=== PATIENT | female | born 1975 | race Caucasian/White ===

== ENCOUNTER → 2017-12-23 13:35 | Outpatient (CLI) | payer MEDICAID, SELFPAY ==
--- NOTE | 2017-12-23 | NVE_ITS ---
Venous Exam Indications: 729.5 Pain in limb. Patient states on December 17 she had a burning pain that originated in the right anterior wrist that moved up the outside of the arm to the shoulder. She denies any known trauma. No recent IV sticks. IMPRESSIONS No evidence of deep or superficial vein thrombosis involving the veins of the right upper extremity History: Right upper extremity pain. Right upper extremity venous duplex. Doppler flow study including spectral analysis, color and pena scale imaging. Location: Vascular laboratory. Patient status: Outpatient. Tables: Venous flow and imaging: + + + Location Flow properties + + + Right internal jugular Normal phasicity; spontaneous; compressible + + + Right subclavian Normal phasicity; spontaneous; normal augmentation; compressible + + + Right axillary Normal phasicity; spontaneous; normal augmentation; compressible + + + Right brachial Normal phasicity; spontaneous; normal augmentation; compressible + + + Right cephalic Normal phasicity; spontaneous; normal augmentation; compressible + + + Right basilic Normal phasicity; spontaneous; normal augmentation; compressible + + + Right radial Compressible + + + Right ulnar Compressible + + + (Report amended ) Electronically signed by: Pankaj Dunlap [id number]
== END ==
PROVIDERS: PCP Family Medicine; Visit Provider Nurse Practitioner
DX: M79.601 Pain in right arm (principal); S40.021A Contusion of right upper arm, initial encounter
CPT/HCPCS: 93971

== ENCOUNTER 2021-02-22 13:41 | Emergency (ER) | payer MEDICAID, SELFPAY ==
[2021-02-22 15:45] VITALS: BP 141/90; PULSE 90; RESP 20; TEMP 36.7; O2SAT 100; BMI 24.9
--- NOTE | 2021-02-22 16:18 | HMH.EDUTC ---
[facility] [place] Clinical Impression: Burning with urination Disposition: Home, Self-Care Condition on Discharge: Good Instructions: DI for Urinary Tract Infection (UTI), DI for Vaginal Yeast Infection Additional Instructions: *Increase fluids. Water not Soda or Tea *Start antibiotic immediately and be sure to take as ordered for the FULL length of time although you should start to see improvement over the next 48 hours Be SURE to follow up anytime for new or worsening symptoms with your family doctor. AND in 48 hours for urine culture results with your family doctor, if you do not have a doctor then you may call back to the [facility] for urine culture results and further treatment. We do recommend that you choose and establish care with a Primary Care Physician. AND follow up with them in 10-14 days to repeat UA to ensure infection is resolved and blood no longer present *Be sure to let your PCP know that we sent urine cultures from the [facility] so they can follow up to ensure that you area the on the correct antibiotic Call your doctor office and make appointment for 48 hours (2 days from today) to follow up and get the results of your urine culture and further treatment Follow up with your Family Doctor or OBGYN if symptoms continued Prescriptions: Fluconazole [Diflucan 150mg tab] 150 mg PO DIRECTED #2 tab Transmission Status: Pending to [facility] Nitrofurantoin Monohyd/M-Cryst [Macrobid 100 mg Capsule] 100 mg PO BID 5 Days #10 cap Transmission Status: Pending to [facility] Referrals: Joseph Farias [Primary Care Provider] - As needed Medical Decision Making - Moises Inquiry Pt receiving controlled substance: No Moises was queried for this patient: No Vital Signs: 02/22/21 15:45 Temperature 98.1 F Temperature Source Oral Pulse Rate [Right Brachial] 90 Respiratory Rate 20 Blood Pressure [Right Arm] 141/90 H Blood Pressure Mean [Right Arm] 107 Blood Pressure Source [Right Arm] Automatic Cuff Blood Pressure Position [Right Arm] Sitting 02 Sat by Pulse Oximetry 100 Oxygen Delivery Method Room Air - Lab Data Lab results reviewed: Yes: I reviewed the patient's lab results. Medical Decision Narrative: Discussed with patient about transfer to the ED and patient declined due to pressure in her pelvic area patient states that she just feels pressure like she has to urinate frequently and denies fever or abdominal pain [facility] [place] - General Stated complaint: possible uti/yeast infection Time Seen by Provider: 02/22/21 16:18 Mode of Arrival: Ambulatory Source of Information: Patient Limitations: No Limitations Description of Symptoms (Recalled from Triage Doc. by RN): PATIENT C/O URINARY FREQUENCY, PRESSURE/PAIN TO LEFT PELVIC AREA THAT RADIATES TO BACK, AND IRRITATION TO LOLITA AREA HEENT Symptoms (Recalled from RN notes): No Resp Symptoms (Recalled from RN notes): No Skin Symptoms (Recalled from RN notes): No MS Symptoms (Recalled from RN notes): No Functional Status (Recalled from RN notes): WNL - History of Present Illness Provider Complaint: Patient states that she was recently seen by her OBGYN and treated for yeast infection and given flagyl cream State that it got better but now she is having the white discharge again with burning to vaginal area States that she thinks she may have a UTI or bladder infection States that she has been having achy like feeling in her lower back that comes around her side and pressure like she has to go States that she took azo and it helped a little - Related Data Previous Rx's Medication Instructions Recorded acyclovir 800 mg tablet 800 mg PO 5XD 7 Days #35 tab 04/11/18 Fluconazole [Diflucan 150mg tab] 150 mg PO DIRECTED #2 tab 02/22/21 Nitrofurantoin Monohyd/M-Cryst 100 mg PO BID 5 Days #10 cap 02/22/21 [Macrobid 100 mg Capsule] Allergies Allergy/AdvReac Type Severity Reaction Status Date / Time Penicillins [PENICILLINS] Allergy Unknown Ve
[2021-02-22 16:24] LABS: Apearance,Urine Clear (Clear); Color,Urine Yellow (Yellow); PH,Urine 5.5 (5.0-8.5); Protein,Urine Negative (Negative)
[2021-02-22 16:25] LABS: Bilirubin,Urine Negative (Negative); Blood, Urine Negative (Negative); Glucose,Urine (UA) Negative (Negative); Ketones,Urine Negative (Negative); UTC Leukocyte Esterase,Urine Negative (Negative); UTC Nitrate,Urine Negative (Negative); Urobilinogen,Urine 0.2 EU/dl (0.2)
[2021-02-22 16:40] VITALS: BP 141/90; PULSE 90; RESP 20; TEMP 36.7; O2SAT 100
== END 2021-02-22 16:43 | disposition home or self-care (01) ==
PROVIDERS: Emergency Provider Nurse Practitioner; PCP Family Medicine
DX: N39.0 Urinary tract infection, site not specified (principal); Z88.0 Allergy status to penicillin; Z88.2 Allergy status to sulfonamides; Z88.5 Allergy status to narcotic agent; Z88.8 Allergy status to other drugs, medicaments and biological substances
CPT/HCPCS: 81003; 99202; G0463

== ENCOUNTER 2021-12-18 17:20 | Emergency (ER) | payer MEDICAID, SELFPAY ==
[2021-12-18 18:13] VITALS: BP 123/79; PULSE 96; RESP 18; TEMP 36.8; O2SAT 98; BMI 27.2
--- NOTE | 2021-12-18 18:19 | XR_ITS ---
PROCEDURE INFORMATION: Exam: XR Left Tibia and Fibula Exam date and time: 12/18/2021 6:24 PM Age: 46 years old Clinical indication: Pain; Lower leg; Left; Additional info: Pain, swelling TECHNIQUE: Imaging protocol: Radiologic exam of the Left tibia and fibula. Views: 2 views. COMPARISON: No relevant prior studies available. FINDINGS: Bones/joints: Normal. Soft tissues: Normal. IMPRESSION: No acute findings.
--- NOTE | 2021-12-18 18:20 | HMH.EDGENADL ---
Discharge Plan Disposition Patient Disposition: Home, Self-Care Condition: Good Chief Complaint: Extremity Injury, Lower Prescriptions Prescriptions: No Action acyclovir 800 mg tablet 800 mg PO 5XD 7 Days Qty: 35 0RF Rx Instructions: while awake fluconazole 150 MG tablet 150 mg PO DIRECTED Qty: 2 0RF Rx Instructions: take one tablet now and may repeat in 72 hours nitrofurantoin monohyd/m-cryst 100 MG capsule 100 mg PO BID 5 Days Qty: 10 0RF Referrals Follow up/Referrals: Chencho Farias MD [Primary Care Provider] - See instructions Activity Restrictions/Add. Instructions Additional Instructions/Restrictions: Ibuprofen for pain. Elevate leg to reduce swelling. Follow-up with your primary care provider for further evaluation and care. Call tomorrow to make appointment. Clinical Impressions Clinical Impression: Left leg pain Instructions Patient Instructions: DI for Leg Pain Discharge ED Provider: Tone Archuleta General Adult HPI General Chief complaint: Extremity Injury, Lower Stated complaint: LEFT LEG PAIN Time Seen by Provider: 12/18/21 18:10 Mode of Arrival: Ambulatory Source of Information: Patient Limitations: No Limitations Description of Symptoms (Recalled from ER Triage Doc. by RN): pt to ed c/o left leg pain and swelling. pt states her leg has been painful x2 weeks. pt denies any injuries. pt states she has intermittent tingling to the extremity. LLE pulses strong on palpation. History of Present Illness HPI narrative: States that for more than a month she has had some pain and swelling in her left leg. She says it is most painful around the midshaft of the lower leg but it radiates both upwards and downwards. She feels like there is some swelling in that area as well. Associated with a tingling sensation. No fever, no redness. No trauma or injury or unusual activity. States she tried to get into her primary care doctor and cannot get an appointment for several weeks. She is concerned about having a clot. She does not have any prior history of blood clots. She says she has been worked up 1 time previously. She says that she had tingling and swelling of her legs and she had a CAT scan of her legs that showed very narrow veins. Related Data Previous Rx's Medication Instructions Recorded acyclovir 800 mg tablet 800 mg PO 5XD shingles 7 days #35 02/25/19 tabs fluconazole 150 mg tablet 150 mg PO DIRECTED #2 tabs 02/22/21 nitrofurantoin 100 mg PO BID 5 days #10 caps 02/22/21 monohydrate/macrocrystals 100 mg capsule Allergies Allergy/AdvReac Type Severity Reaction Status Date / Time Penicillins [PENICILLINS] Allergy Unknown Verified 02/22/21 16:18 Sulfa (Sulfonamide Allergy Unknown Verified 02/22/21 16:18 Antibiotics) [SULFA (SULFONAMIDE ANTIBIOTICS)] acetaminophen [From [place]] Allergy Verified 02/22/21 16:16 adhesive tape Allergy Verified 02/22/21 16:18 ciprofloxacin Allergy Verified 02/22/21 16:16 clindamycin Allergy Verified 02/22/21 16:16 doxycycline Allergy Verified 02/22/21 16:16 hydrocodone [From [place]] Allergy Verified 02/22/21 16:16 IV CONTRAS Allergy Uncoded 02/22/21 16:18 PFSH PFSH Social History Smoking Status: Never smoker alcohol intake: never current occupational status: employed Travel in the last 8 weeks: None household members: family housing: house ROS Obtained: Yes Systems reviewed as appropriate & no additional complaints except as documented Constitutional Constitutional: Denies fever(s) Cardiovascular Cardiovascular: Denies chest pain Respiratory Respiratory: Denies shortness of breath Musculoskeletal Musculoskeletal: Reports as per HPI and Reports tingling Neurologic Neurologic: Reports tingling Physical Exam General General appearance: alert and in no apparent distress Chest Chest inspection: Present normal inspection and symmetric chest wall
--- NOTE | 2021-12-18 18:40 | PC.NURSE ---
rounded on pt to see if they had any needs. pt stated no needs at this time.
[2021-12-18 18:42] LABS: Basophils # 0.1 K/mm3 (0-0.2); Basophils % 0.9 % (0.1-2.0); Eosinophils # 0.2 K/mm3 (0.0-0.4); Eosinophils % 2.1 % (0.1-12.0); Hematocrit 43.7 % (37.0-47.0); Hemoglobin 14.5 g/dL (12.2-16.2); Lymphocytes % 34.2 % (10-50); Mean Corpuscular HGB Conc 33.2 g/dL (31.8-35.4); Mean Corpuscular Hemoglobin 30.2 pg (27.0-31.2); Monocytes # 0.5 K/mm3 (0.1-1.0); Monocytes % 5.2 % (1.7-9.3); Neutrophils % 57.6 % (37.0-80.0); Platelet Count 346 K/mm3 (142-424); Red Cell Distribution Width 13.1 % (11.5-17.5); White Blood Count 8.7 K/mm3 (4.8-10.8)
[2021-12-18 19:18] LABS: Anion Gap 17.9 mEq/L (5-15); Blood Urea Nitrogen 15 mg/dl (7-17); Calcium 9.7 mg/dl (8.4-10.2); Carbon Dioxide 24 mmol/L (22.0-30.0); Chloride 100 mmol/L (98-107); Creatinine Clearance Estimated 109 mL/min (50-200); Estimated Glomerular Filt Rate 77 ml/min (>60); GFR (African American) 93 ML/MIN (>60); Glucose 98 mg/dl (74-100); Potassium 3.9 mmoL/L (3.5-5.1); Sodium 138 mmol/L (136-145)
[2021-12-18 19:22] LABS: D-Dimer 0.47 ug/mL (0.0-0.5)
[2021-12-18 19:50] VITALS: BP 128/71; PULSE 91; RESP 18; TEMP 36.8; O2SAT 98
== END 2021-12-18 19:51 | disposition home or self-care (01) ==
PROVIDERS: Emergency Provider Emergency Medicine; PCP Family Medicine
DX: M79.605 Pain in left leg (principal)
CPT/HCPCS: 73590; 80048; 85025; 85378; 99283

== ENCOUNTER 2022-08-17 18:54 | Emergency (ER) | payer MEDICAID, SELFPAY ==
--- NOTE | 2022-08-17 19:19 | PC.NURSE ---
trauma alert called
--- NOTE | 2022-08-17 19:25 | PC.NURSE ---
trauma alert cancelle
--- NOTE | 2022-08-17 19:29 | PC.NURSE ---
FAST exam negative per physician.
--- NOTE | 2022-08-17 19:40 | PC.NURSE ---
report called to [facility] ER. spoke with Gee GALE
[2022-08-17 19:42] VITALS: BP 135/88; PULSE 80; RESP 16; TEMP 36.7; O2SAT 98; BMI 24.3
--- NOTE | 2022-08-17 20:30 | PC.NURSE ---
I WAS AT BS ASSISTING DR. CHAN CLEAN OUT PT EYE OR ANYTHING HE NEEDED, SON AT BS
--- NOTE | 2022-08-17 20:39 | HMH.EDEYEP ---
Discharge Plan Disposition Patient Disposition: Home, Self-Care Prescriptions Prescriptions: No Action acyclovir 800 mg tablet 800 mg PO 5XD 7 Days Qty: 35 0RF Rx Instructions: while awake fluconazole 150 MG tablet 150 mg PO DIRECTED Qty: 2 0RF Rx Instructions: take one tablet now and may repeat in 72 hours nitrofurantoin monohyd/m-cryst 100 MG capsule 100 mg PO BID 5 Days Qty: 10 0RF Referrals Follow up/Referrals: Chencho Farias MD [Primary Care Provider] - See instructions Clinical Impressions Clinical Impression: Eye foreign body Instructions Patient Instructions: DI for Foreign Body in the Eye Discharge ED Provider: Helene (ED)Rob Eye Problem HPI General Chief complaint: Eye Problems Stated complaint: LT eye pain , poss something in it Time Seen by Provider: 08/17/22 20:05 Mode of Arrival: Family Vehicle Source of Information: Patient and Medical Record Limitations: No Limitations Description of Symptoms (Recalled from ER Triage Doc. by RN): 46 YO FEMALE PRESENTS WITH LEFT EYE FOREIGN BODY. ACCORDING TO PT, SHE WAS OUTSIDE LAST NIGHT AND FELT SOMETHING 'GO IN' AND NOW 'HAS A BLACK SPECK' AND FEELS LIKE HER VISION IS ALTERED. VISUAL ACUITY REVEALS OS: 20/40, OD 20/20, OU 20/15. History of Present Illness HPI Narrative: small fb lt eye last pm with fb sensation - no contacts lens use chief complaint: foreign body Onset (ago): hour(s) Duration: intermittent Location: left eye Place: home Severity: moderate Treatments Prior to Arrival: irrigated eye and OTC eye drops Related Data Previous Rx's Medication Instructions Recorded acyclovir 800 mg tablet 800 mg PO 5XD shingles 7 days #35 04/11/18 tabs fluconazole 150 mg tablet 150 mg PO DIRECTED #2 tabs 02/22/21 nitrofurantoin 100 mg PO BID 5 days #10 caps 02/22/21 monohydrate/macrocrystals 100 mg capsule Allergies Allergy/AdvReac Type Severity Reaction Status Date / Time Penicillins [PENICILLINS] Allergy Unknown Verified 02/22/21 16:18 Sulfa (Sulfonamide Allergy Unknown Verified 02/22/21 16:18 Antibiotics) [SULFA (SULFONAMIDE ANTIBIOTICS)] acetaminophen [From [place]] Allergy Verified 02/22/21 16:16 adhesive tape Allergy Verified 02/22/21 16:18 ciprofloxacin Allergy Verified 02/22/21 16:16 clindamycin Allergy Verified 02/22/21 16:16 doxycycline Allergy Verified 02/22/21 16:16 hydrocodone [From [place]] Allergy Verified 02/22/21 16:16 IV CONTRAS Allergy Uncoded 02/22/21 16:18 [facility] Disclaimer: The information contained in this section may have been updated after the patient was seen, as this information can be updated by other users. Social History Smoking Status: Never smoker alcohol intake: never current occupational status: employed Travel in the last 8 weeks: None household members: family housing: house ROS Obtained: Yes All systems reviewed & no additional complaints except as documented Physical Exam General General appearance: alert Head Head exam: normocephalic Eye Eye exam: Present PERRL, EOMI and other (everted lid was neg and neg fluro stain) ENT ENT exam: Present mucous membranes moist Neck Neck exam: Present trachea midline Respiratory Respiratory exam: Absent respiratory distress Cardiovascular Cardiovascular exam: Present regular rate Extremities Exam Extremities exam: Present full ROM Neurological Exam Neurological exam: Present alert, oriented X3 and CN II-XII intact Skin Skin exam: Absent rash Medical Decision Making Medical Records Medical records reviewed: Yes I reviewed the patient's medical records. Moises Inquiry Pt receiving controlled substance: No Vital Signs: 08/17/22 19:42 Temperature 98.0 F Temperature Source Oral Pulse Rate [Left] 80 Respiratory Rate 16 Blood Pressure [Right Arm] 135/88 Blood Pressure Mean [Right Arm] 103 Blood Pressure Source [Right Arm] Automatic Cuff Blo
--- NOTE | 2022-08-17 20:46 | PC.NURSE ---
CALLED AND CONFIRMED PATIENT DOSAGE AND MEDICATION WITH ALREADY KNOWN ALLERGIES.
[2022-08-17 21:06] VITALS: BP 135/88; PULSE 76; RESP 16; TEMP 36.6; O2SAT 97; BMI 24.3
--- NOTE | 2022-08-17 21:09 | PC.NURSE ---
ROUNDED ON PT NOTHING NEEDED AT THIS TIME, CALL LIGHT AT BS
== END 2022-08-17 21:12 | disposition home or self-care (01) ==
PROVIDERS: Emergency Provider Emergency Medicine; PCP Family Medicine
DX: T15.02XA Foreign body in cornea, left eye, initial encounter (principal); H53.9 Unspecified visual disturbance
CPT/HCPCS: 99283; 99284

== ENCOUNTER 2024-01-11 14:00 | Emergency (ER) | payer MEDICAID, SELFPAY ==
--- NOTE | 2024-01-11 14:05 | XR_ITS ---
FINAL REPORT CLINICAL HISTORY: rolled ankle, pain COMPARISON: None FINDINGS: AP, oblique, and lateral views of the left ankle were obtained. There is no fracture or dislocation. The ankle mortise is intact. Soft tissues are unremarkable. IMPRESSION: No acute osseous abnormality of the left ankle. Reviewed, Interpreted and Dictated by Kailey Kiser MD Transcribed by Dilia Sanderson Authenticated and [facility]
[2024-01-11 14:15] VITALS: BP 133/75; PULSE 70; RESP 20; TEMP 36.8; O2SAT 98; BMI 29.0
--- NOTE | 2024-01-11 14:18 | ED_ITS ---
Discharge Plan Disposition Patient Disposition: Home, Self-Care Condition: Good Prescriptions Prescriptions: No Action nitrofurantoin monohyd/m-cryst 100 MG capsule 100 mg PO BID 5 Days Qty: 10 0RF Referrals Follow up/Referrals: Kaity Abdi APRN [Nurse Practitioner] - See instructions Provider,Referral, [Primary Care Provider] - See instructions Activity Restrictions/Add. Instructions Additional Instructions/Restrictions: *weight bearing as tolerated *RICE, Rest the extremity, Ice 15-20 minutes 3-4 times daily, Compress- wear the chaz wrap as discussed as much as possible to help reduce swelling and pain, Elevate the extremity when at rest *Chaz wrap is for support and help control swelling, use it except in the shower. Be sure that is not to tight but not to loose either *Elevate when resting? *Ibuprofen 600-800mg every 6-8 hours as needed for pain an inflammation. If need something more can take Tylenol in between doses of Ibuprofen to help Immediately follow up with your family doctor for new or worsening of symptoms, or no noticeable improvement over the next 3-5 days You may call back to the [facility] later this evening for the official reading of your foot xray Clinical Impressions Clinical Impression: Foot and ankle pain Instructions Patient Instructions: How to Use Crutches, How To Perform RICE (Rest, Ice, Compress, Elevate), How to Use a Walking Boot Print Language Print Language: Upper Sorbian Discharge ED Provider[place] Iesha Carr [facility] [place] General Stated complaint: L ankle pain ao Mode of Arrival: Ambulatory Source of Information: Patient Time Seen by Provider: 01/11/24 14:18 Description of Symptoms (Recalled from Triage Doc. by RN): ROLLED LEFT ANKLE HEENT Symptoms (Recalled from RN notes): No Resp Symptoms (Recalled from RN notes): No Skin Symptoms (Recalled from RN notes): No MS Symptoms (Recalled from RN notes): Yes Functional Status (Recalled from RN notes): WNL History of Present Illness Provider Complaint: Patient states that she was walking earlier today and rolled her left ankle States that as the day went on it continued to bother her worse so she came in to get it checked Related Data Previous Rx's ?Medication ?Instructions ?Recorded nitrofurantoin 100 mg PO BID 5 days #10 caps 02/22/21 monohydrate/macrocrystals 100 mg capsule Allergies Allergy/AdvReac Type Severity Reaction Status Date / Time Penicillins (PENICILLINS) Allergy Unknown Verified 02/22/21 16:18 Sulfa (Sulfonamide Allergy Unknown Verified 02/22/21 16:18 Antibiotics) (SULFA (SULFONAMIDE ANTIBIOTICS)) acetaminophen (From [place]) Allergy Verified 02/22/21 16:16 adhesive tape Allergy Verified 02/22/21 16:18 ciprofloxacin Allergy Verified 02/22/21 16:16 clindamycin Allergy Verified 02/22/21 16:16 doxycycline Allergy Verified 02/22/21 16:16 hydrocodone (From [place]) Allergy Verified 02/22/21 16:16 IV CONTRAS Allergy Uncoded 02/22/21 16:18 Worker's Comp Is this a Worker's Comp case?: No [facility] Disclaimer: The information contained in this section may have been updated after the patient was seen, as this information can be updated by other users. Social History Smoking Status: Never smoker alcohol intake: never current occupational status: employed household members: family housing: house ROS Obtained: Yes All systems reviewed & no additional complaints except as documented and Yes Systems reviewed as appropriate & no additional complaints except as documented Constitutional Constitutional: Reports system reviewed and no additional complaints, except as documented and Reports as per HPI ENT Ears, Nose, Mouth, and Throat: Reports system reviewed and no additional complaints, except as documented and Reports as per HPI Cardiovascular Cardiovascular: Reports system reviewed and no additional complaints, except as documented and Reports as per HPI Respiratory Respiratory: Reports system reviewed and no additional complaints, except as documented and Reports as per HPI Gastrointestinal Gastrointestingal: Reports system reviewed and no additional complaints, except as documented and as per HPI Musculoskeletal Musculoskeletal: Reports system reviewed and no additional complaints, except as documented, Reports as per HPI and Reports other (pain and tenderness in left ankle after rolling it earlier) Integumentary/Breasts Skin/Breast: Reports system reviewed and no additional complaints, except as documented and Reports as per HPI Neurologic Neurologic: Reports system reviewed and no additional complaints, except as documented and Reports as per HPI Physical Exam General General appearance: alert and in no apparent distress ENT ENT exam: Present normal exam, normal oropharynx, mucous membranes moist and TM's normal bilaterally Respiratory Respiratory exam: Present normal lung sounds bilaterally; Absent respiratory distress or wheezes Cardiovascular Cardiovascular exam: Present regular rate, normal rhythm and normal heart sounds Abdominal Exam Abdominal exam: Present soft and normal bowel sounds; Absent distention or tenderness Expanded Lower Extremity Exam Left: Ankle exam: Present tenderness, swelling and ecchymosis Ankle image: 2 1. reports pain and tenderness in outside of ankle that is worse with weight bearing Gait: observed and limited by pain Neurological Exam Neurological exam: Present alert, oriented X3 and normal gait Medical Decision Making Medical Records Screening: Per USPSTF and CDC recommendations, given the prevalence of disease in our region, it is our hospital?s policy to screen for HIV and viral Hepatitis for all patients aged 18 and over and those with ongoing risk factors. Moises Inquiry Pt receiving controlled substance: No Moises was queried for this patient: No Vital Signs: 01/11/24 14:15 Temperature 98.2 F Temperature Source Oral Pulse Rate [Left Brachial] 70 Respiratory Rate 20 Blood Pressure [Left Arm] 133/75 Blood Pressure Mean [Left Arm] 94 02 Sat by Pulse Oximetry 98 Orders (Tests/Meds): ORDERS Category Date Time Status Ankle XR - Left minimum 3 Views [XR ankle LT min 3V] Exams 01/11/24 14:05 Taken Stat Radiology Data #1: Image(s): Ankle Image Reviewed: Yes I have reviewed radiologist's interpretation No acute osseous abnormality of left ankle Medical Decision Narrative: Patient reports pain is more in foot now will do a xray of foot Procedures Orthopedic Splinting/Casting Injury #1: Side: left Lower Extremity Injury Location: ankle and foot Lower Extremity Immobilizer: boot orthosis Other Orthopedic Equipment: crutches Post Cast/Splinting Neuro Status: intact and no change Post Cast/Splinting Vasc Status: intact and no change
--- NOTE | 2024-01-11 15:34 | XR_ITS ---
PROCEDURE INFORMATION: Exam: XR Left Foot Exam date and time: 01/11/2024 4:01 PM Age: 48 years old Clinical indication: Pain; Foot; Left TECHNIQUE: Imaging protocol: Radiologic exam of the left foot. Views: 3 or more views. COMPARISON: CR XR ANKLE LT MIN 3V 01/11/2024 1:58 PM FINDINGS: Bones/joints: Normal. Soft tissues: Normal. IMPRESSION: No acute findings.
[2024-01-11 16:37] VITALS: BP 133/75; PULSE 70; RESP 20; TEMP 36.8
== END 2024-01-11 16:37 | disposition home or self-care (01) ==
PROVIDERS: Emergency Provider Nurse Practitioner
DX: M25.572 Pain in left ankle and joints of left foot (principal)
CPT/HCPCS: 73610; 73630; 99213; G0381

== ENCOUNTER 2024-02-13 19:38 | Observation (INO) | payer MEDICAID, SELFPAY ==
[2024-02-13 19:45] VITALS: BP 152/93; PULSE 82; RESP 20; TEMP 36.8; O2SAT 97; BMI 29.0
--- NOTE | 2024-02-13 19:46 | ECG_ITS ---
APPROVED REPORT Exam: Resting ECG HR:79 bpm ECG Measurements Heart Rate 79 AXES NM 131 P 64 QRSd 88 QRS 57 QT 377 T 48 QTc [address] depressions without elevations Electronically signed by : ELISHA OSWALD, 02/14/2024 15:02:45
--- NOTE | 2024-02-13 19:49 | CT_ITS ---
PROCEDURE INFORMATION: Exam: CTA Head With Contrast, Arteriography Exam date and time: 02/13/2024 8:03 PM Age: 48 years old Clinical indication: Stroke-like symptoms; Lt upper extremity and lt lower extremity weakness; Additional info: Left-sided motor and sensation deficits TECHNIQUE: Imaging protocol: Computed tomographic angiography of the head with contrast. Exam focused on the arteries. 3D rendering (Not supervised by radiologist): MIP and/or 3D reconstructed images were created by the technologist. Radiation optimization: All CT scans at this facility use at least one of these dose optimization techniques: automated exposure control; mA and/or kV adjustment per patient size (includes targeted exams where dose is matched to clinical indication); or iterative reconstruction. Contrast material: ISOUVE 370; Contrast volume: 80 ml; Contrast route: INTRAVENOUS (IV); COMPARISON: CT ANGIO HEAD 02/13/2024 8:03 PM FINDINGS: ANTERIOR CIRCULATION: Right internal carotid artery: Intracranial segment is patent with no significant stenosis. No aneurysm. Right middle cerebral artery: No occlusion or significant stenosis. No aneurysm. Right anterior cerebral artery: No occlusion or significant stenosis. No aneurysm. Left internal carotid artery: Intracranial segment is patent with no significant stenosis. No aneurysm. Left middle cerebral artery: No occlusion or significant stenosis. No aneurysm. Left anterior cerebral artery: No occlusion or significant stenosis. No aneurysm. POSTERIOR CIRCULATION: Right vertebral artery: No occlusion or significant stenosis. No aneurysm. Left vertebral artery: No occlusion or significant stenosis. No aneurysm. Basilar artery: No occlusion or significant stenosis. No aneurysm. Right posterior cerebral artery: No occlusion or significant stenosis. No aneurysm. Left posterior cerebral artery: No occlusion or significant stenosis. No aneurysm. Brain: No definite mass, mass effect, or midline shift. Cerebral ventricles: No ventriculomegaly. Bones/joints: Unremarkable. No acute fracture. Soft tissues: Unremarkable. IMPRESSION: No large vessel stenosis or occlusion.
--- NOTE | 2024-02-13 19:49 | CT_ITS ---
PROCEDURE INFORMATION: Exam: CT Head Without Contrast Exam date and time: 02/13/2024 8:00 PM Age: 48 years old Clinical indication: Stroke-like symptoms; Lt upper extremity and lt lower extremity weakness; Additional info: Left-sided motor and sensation deficits TECHNIQUE: Imaging protocol: Computed tomography of the head without contrast. Radiation optimization: All CT scans at this facility use at least one of these dose optimization techniques: automated exposure control; mA and/or kV adjustment per patient size (includes targeted exams where dose is matched to clinical indication); or iterative reconstruction. Other technique: STROKE PROTOCOL was implemented. COMPARISON: No relevant prior studies available. FINDINGS: Brain: Normal. No hemorrhage. Unremarkable white matter. No mass effect. Cerebral ventricles: No ventriculomegaly. Paranasal sinuses: Visualized sinuses are unremarkable. No fluid levels. Mastoid air cells: Visualized mastoid air cells are well aerated. Bones: Unremarkable. No acute fracture. Soft tissues: Unremarkable. IMPRESSION: No acute intracranial abnormality. ASSESSMENT: ASPECTS ([place] Stroke Program Early CT Score) is 10.
--- NOTE | 2024-02-13 19:49 | CT_ITS ---
PROCEDURE INFORMATION: Exam: CTA Neck With Contrast Exam date and time: 02/13/2024 8:03 PM Age: 48 years old Clinical indication: Stroke-like symptoms; Other: Left-sided motor and sensation deficits TECHNIQUE: Imaging protocol: Computed tomographic angiography of the neck with contrast. Exam focused on the cervical segments of the vasculature. 3D rendering (Not supervised by radiologist): MIP and/or 3D reconstructed images were created by the technologist. Radiation optimization: All CT scans at this facility use at least one of these dose optimization techniques: automated exposure control; mA and/or kV adjustment per patient size (includes targeted exams where dose is matched to clinical indication); or iterative reconstruction. Contrast material: ISOVUE; Contrast volume: 80 ml; Contrast route: INTRAVENOUS (IV); COMPARISON: CT ANGIO HEAD 02/13/2024 8:03 PM FINDINGS: Right common carotid artery: No stenosis. No dissection or occlusion. Right internal carotid artery: No stenosis of the extracranial segment. No dissection or occlusion. Right external carotid artery: No occlusion or stenosis of the origin. Left common carotid artery: No stenosis. No dissection or occlusion. Left internal carotid artery: No stenosis of the extracranial segment. No dissection or occlusion. Left external carotid artery: No occlusion or stenosis of the origin. Right vertebral artery: No stenosis. No dissection or occlusion. Left vertebral artery: No stenosis. No dissection or occlusion. Soft tissues: Normal. No significant soft tissue swelling. Bones/joints: No acute fracture. IMPRESSION: No stenosis or occlusion. REFERENCES: NASCET CRITERIA. The degree of stenosis in the cervical segment of the internal carotid artery is based on NASCET criteria. Normal is no stenosis. Mild is less than 50% stenosis. Moderate is 50-69% stenosis. Severe is 70% to 99% stenosis. Total occlusion is no detectable patent lumen.
--- NOTE | 2024-02-13 19:52 | PC.NURSE ---
Accucheck 102 Pt has sensory changes in left arm and leg and face. Skin pink warm and dry Resp full and easy Speech clear and appropriate. Pt in NSR per continuous heart monitor. Left leg weaker than right when trying to lift it off the bed.
[2024-02-13] MEDS: diphenhydrAMINE 50MG/ML VIAL 50 MG IV (19:53)
[2024-02-13] MEDS: METHYLPREDNISOLONE SOD SUCC 125MG VIAL 125 MG IV (19:53)
--- NOTE | 2024-02-13 19:54 | PC.NURSE ---
Pt to CT scan via stretcher after being premedicated for previous issues of reaction to contrast
[2024-02-13 19:56] LABS: Basophils # 0.1 K/mm3 (0-0.2); Basophils % 0.7 % (0.1-2.0); Eosinophils # 0.2 K/mm3 (0.0-0.4); Hematocrit 40.7 % (37.0-47.0); Hemoglobin 14.2 g/dL (12.2-16.2); Lymphocytes # 3.4 K/mm3 (0.7-4.5); Lymphocytes % 34.1 % (10-50); Mean Corpuscular HGB Conc 34.9 g/dL (31.8-35.4); Mean Corpuscular Hemoglobin 30.1 pg (27.0-31.2); Mean Corpuscular Volume 86.2 fl (81-99); Mean Platelet Volume 9.6 fl (7.4-10.4); Monocytes # 0.9 K/mm3 (0.1-1.0); Monocytes % 9.2 % (1.7-9.3); Neutrophils # 5.3 K/mm3 (1.8-7.8); Neutrophils % 53.7 % (37.0-80.0); Platelet Count 310 K/mm3 (142-424); Red Blood Count 4.72 M/mm3 (4.20-5.40); Red Cell Distribution Width 12.2 % (11.5-17.5); White Blood Count 9.9 K/mm3 (4.8-10.8)
--- NOTE | 2024-02-13 19:57 | PC.NURSE ---
Pt states she has had a mild headache all day today
[2024-02-13 19:59] LABS: Albumin Level 4.5 g/dl (3.5-5.0); Chloride 105 mmol/L (98-107); Sodium 135 mmol/L (136-145)
--- NOTE | 2024-02-13 20:00 | ED_ITS ---
Discharge Plan Disposition Patient Disposition: Admitted Condition: Good Clinical Impressions Clinical Impression: Arm numbness left, Stroke-like symptoms, Headache Discharge ED Provider: Hemanth Del Rosario General Adult HPI General Chief complaint: Weakness Stated complaint: L leg and arm numbness Time Seen by Provider: 02/13/24 19:49 Mode of Arrival: Ambulatory Source of Information: Patient Limitations: No Limitations Description of Symptoms (Recalled from ER Triage Doc. by RN): left sided numbness History of Present Illness HPI narrative: Please note that above description of symptoms, in this electronic medical record under categorization of recalled from ER triage doctor by RN are reflective of an initial nursing assessment, however, is not reflective of my full history and physical exam that was personally taken and clarified. Consequentially, this preceding description of symptoms, which may include the patient's categorized chief complaint in the EMR, do not reflect my personal clinical impression, and the ultimate description of history of present illness and patient stated complaints should be deferred to this section of the note. Unless stated otherwise or congruent with this section of the note, additional signs, symptoms, or incongruence should be interpreted as inaccurate with my clinical impression. Related Data Home Medications ?Medication ?Instructions ?Recorded ?Confirmed No Known Home Medications 02/14/24 02/14/24 Allergies Allergy/AdvReac Type Severity Reaction Status Date / Time Penicillins (PENICILLINS) Allergy Unknown Verified 02/22/21 16:18 Sulfa (Sulfonamide Allergy Unknown Verified 02/22/21 16:18 Antibiotics) (SULFA (SULFONAMIDE ANTIBIOTICS)) acetaminophen (From [place]) Allergy Verified 02/22/21 16:16 adhesive tape Allergy Verified 02/22/21 16:18 ciprofloxacin Allergy Verified 02/22/21 16:16 clindamycin Allergy Verified 02/22/21 16:16 doxycycline Allergy Verified 02/22/21 16:16 hydrocodone (From [place]) Allergy Verified 02/22/21 16:16 IV CONTRAS Allergy Uncoded 02/22/21 16:18 [facility] Disclaimer: The information contained in this section may have been updated after the patient was seen, as this information can be updated by other users. Medical History (Updated 02/14/24 @ 15:18 by Hemanth Del Rosario MD) Arm numbness left Herpes infection No significant past medical history Surgical History H/O: hysterectomy History of tonsillectomy Family History Other Breast cancer Ovarian cancer Social History Smoking Status: Never smoker alcohol intake: never current occupational status: employed Travel in the last 8 weeks: None household members: family housing: house ROS Obtained: Yes All systems reviewed & no additional complaints except as documented Physical Exam General General appearance: alert Head Head exam: atraumatic and normocephalic Eye Eye exam: Present normal appearance, PERRL and EOMI Neck Neck exam: Present normal inspection, full ROM and trachea midline Respiratory Respiratory exam: Absent respiratory distress, wheezes, stridor, accessory muscle use or prolonged expiratory phase Cardiovascular Cardiovascular exam: Present other (Pulses equal symmetric in upper and lower extremities) Abdominal Exam Abdominal exam: Present soft; Absent distention, tenderness or pulsatile mass Extremities Exam Extremities exam: Absent edema Neurological Exam Neurological exam: Present alert, oriented X3, CN II-XII intact and motor sensory deficit (Weakness 4 out of 5 strength left upper and left lower extremity. Sensation deficit left upper and left lower extremity. Hyperalgesia to left side of face) Skin Skin exam: Present warm and dry; Absent diaphoresis or erythema Medical Decision Making Medical Records Medical records reviewed: Yes I reviewed the patient's medical records. Screening: Per USPSTF and CDC recommendations, given the prevalence of disease in our region, it is our hospital?s policy to screen for HIV and viral Hepatitis for all patients aged 18 and over and those with ongoing risk factors. [place] Inquiry Pt receiving controlled substance: No [place] was queried for this patient: No Vital Signs: 02/13/24 19:45 02/13/24 23:07 Temperature 98.2 F 98.4 F Temperature Source Oral Oral Pulse Rate 88 Pulse Rate [Right Brachial] 82 Respiratory Rate 20 20 Blood Pressure 121/70 Blood Pressure [Right Arm] 152/93 H Blood Pressure Mean [Right Arm] 112 Blood Pressure Source Automatic Cuff Blood Pressure Source [Right Arm] Automatic Cuff Blood Pressure Position Sitting Blood Pressure Position [Right Arm] Sitting 02 Sat by Pulse Oximetry 97 Oxygen Delivery Method Room Air Room Air Lab Data Lab Results 02/13/24 19:47: WBC 9.9, RBC 4.72, Hgb 14.2, Hct 40.7, MCV 86.2, MCH 30.1, MCHC 34.9, RDW 12.2, Plt Count 310, MPV 9.6, Neut % (Auto) 53.7, Lymph % (Auto) 34.1, [place] % (Auto) 9.2, Eos % (Auto) 2.0, Baso % (Auto) 0.7, Neut # (Auto) 5.3, Lymph # (Auto) 3.4, [place] # (Auto) 0.9, Eos # (Auto) 0.2, Baso # (Auto) 0.1, PT 9.8 L, INR 0.86 L, APTT 25.2, Sodium 135 L, Potassium 4.0, Chloride 105, Carbon Dioxide 25, Anion Gap 9.0, BUN 14, Creatinine 0.90, Estimated Creat Clear 101, Estimated GFR 67, Est GFR ( Amer) 81, Glucose 104 H, Hemoglobin A1c 4.9, Calcium 9.7, Total Bilirubin 0.3, AST 27, ALT 18, Alkaline Phosphatase 55, Troponin I < 0.01, Total Protein 7.2, Albumin 4.5, Globulin 2.7, Albumin/Globulin Ratio 1.7, Triglycerides 117, Cholesterol 190, LDL Cholesterol Direct 113.49, VLDL Cholesterol 23, HDL Cholesterol 46, Cholesterol/HDL Ratio 4.1 H, Plasma/Serum Alcohol < 10, HIV Ag/Ab Combo Qual Negative 02/13/24 20:50: Urine Color Yellow, Urine Appearance Clear, Urine pH 6.0, Ur Specific [place] <= 1.005, Urine Protein Negative, Urine Glucose (UA) Negative, Urine Ketones Negative, Urine Blood Negative, Urine Nitrate Negative, Urine Bilirubin Negative, Urine Urobilinogen 0.2, Ur Leukocyte Esterase Negative, Urine RBC None, Urine WBC None, Ur Squamous Epith Cells Occasional, Urine Bacteria None 02/14/24 06:15 02/14/24 06:15 Orders (Tests/Meds): ED MEDICATIONS Discontinued Medications Generic Name Dose Route Start Last Admin Trade Name Freq PRN Reason Stop Dose Admin Al Hydrox/Mg Hydrox/Simethicone 30 ml 02/13/24 23:11 Aluminum/Magnesium/Simethicone 30ml Udc PO 03/14/24 23:10 QIDP PRN Dyspepsia Diphenhydramine HCl 50 mg 02/13/24 19:49 02/13/24 19:53 Diphenhydramine 50mg/Ml Vial IV 02/13/24 19:50 50 mg ONCE ONE Administration Lactated Ringer's 1,000 mls @ 999 mls/hr 02/13/24 21:32 02/13/24 21:49 Lactated Ringer's 1000 Ml Bag IV 02/13/24 22:32 999 mls/hr .Q1H1M ONE Administration Iopamidol 80 ml 02/13/24 20:01 02/13/24 20:03 Iopamidol-370 (76%);100ml Bottle IV 02/13/24 20:02 80 ml ONCE ONE Administration Ketorolac Tromethamine 15 mg 02/13/24 21:32 02/13/24 21:48 Ketorolac 30mg/Ml Vial IV 02/13/24 21:33 15 mg ONCE ONE Administration Ketorolac Tromethamine 15 mg 02/14/24 02:49 Ketorolac 30mg/Ml Vial IV 02/19/24 02:48 Q6HP PRN Moderate to Severe Pain (4-10) Methylprednisolone Sodium Succinate 125 mg 02/13/24 19:49 02/13/24 19:53 Methylprednisolone Sod Succ 125mg Vial IV 02/13/24 19:50 125 mg ONCE ONE Administration Ondansetron HCl 4 mg 02/13/24 23:11 Ondansetron 4mg/2ml Vial IV 03/14/24 23:10 Q8HP PRN Nausea Prochlorperazine Edisylate 10 mg 02/13/24 21:32 02/13/24 21:48 Prochlorperazine 10mg/2ml Vial IV 02/13/24 21:33 10 mg ONCE ONE Administration Sodium Chloride 10 ml 02/13/24 19:49 Sodium Chloride 0.9% 10ml Flush Syringe IV 03/14/24 19:48 NEEDED PRN Maintain IV Site Sodium Chloride 50 ml 02/13/24 20:01 02/13/24 20:02 0.9 % Sodium Chloride 50 Ml Vial IV 02/13/24 20:02 50 ml ONCE ONE Administration Sodium Chloride 10 ml 02/13/24 20:01 02/13/24 20:03 Sodium Chloride 0.9% 10ml Syr (Rad Only) IV 03/14/24 20:00 10 ml NEEDED PRN Administration Maintain IV Site ORDERS Category Date Time Status CT angio head Stat Cat Scan 02/13/24 19:[address] angio neck Stat Cat Scan 02/13/24 19:[address] head/brain wo con Stat Cat Scan 02/13/24 19:49 Completed Activated Partial Thrombo Time Stat Lab 02/13/24 19:47 Completed Complete Blood Count Auto Diff Stat Lab 02/13/24 19:47 Completed Comprehensive Metabolic Panel Stat Lab 02/13/24 19:47 Completed Ethyl Alcohol Stat Lab 02/13/24 19:47 Completed HIV Combo Stat Lab 02/13/24 19:47 Completed Hemoglobin A1C Stat Lab 02/13/24 19:47 Completed Hep C Ab with Reflex to RNA Stat Lab 02/13/24 19:47 Received Lipid Panel Stat Lab 02/13/24 19:47 Completed Prothrombin Time INR Stat Lab 02/13/24 19:47 Completed Troponin I Q3H Lab 02/13/24 23:25 Completed Troponin I Q3H Lab 02/14/24 01:50 Completed Troponin I Stat Lab 02/13/24 19:47 Completed Urinalysis and Microscopic Stat Lab 02/13/24 20:50 Completed Medical Decision Narrative: 48-year-old female no relevant medical history presenting with left-sided neurologic symptoms. Patient states that about 2 hours prior to this she was folding laundry when she felt numbness/burning in her left lower extremity and traveled up to her left upper extremity. Took a shower, did not resolve, told her son and son convinced her to come to the emergency department. On arrival, patient has complaints of burning/tingling sensation in her left upper and left lower extremities, does not have any complaints in the left side of her face. No vision changes, speech deficits, chest pain, shortness of breath, or any other concerns. States that she was ambulating, not falling toward 1 side or the other. Patient also states that she started having a headache earlier today that was mostly left-sided, now frontal, took Excedrin Migraine, but is still present. Mild in intensity does not typically get recurrent headaches or migraines. History was obtained via conversation with patient. On arrival, patient hemodynamically stable, alert, oriented x4, appropriate, GCS 15, moving all extremities spontaneously, pupils equal and reactive to light. Full physical exam performed and significant for NIHSS 3 for 4-5 strength in left upper and left lower extremity as well as sensation deficit. Able to sense being touched, but states that it is uncomfortable. Cardiac exam without murmurs gallops or rubs. Lungs are clear bilaterally. Patient speaking in full sentences and no evidence of aphasia or dysarthria. Differential includes intracranial hemorrhage, embolic stroke, dissection, metabolic abnormality, hypoglycemia, complex migraine, among others. Patient placed on continuous cardiac monitoring and continuous pulse ox with initial blood pressure 152/93, heart rate 82, saturation 97% on room air. Independent interpretation of EKG shows sinus rhythm [address] depressions throughout the twelve-lead with no reciprocal elevations and consistent with acute ischemia. OR 131, QRS 88, QTc 412. Normal axis. Patient was given migraine cocktail for symptomatic management and correction of underlying abnormalities. Patient also given Solu-Medrol and Benadryl prior to CT given self-described delayed reaction, with IV contrast. Has never been documented or seen in the emergency department, but she states that happens hours and hours later where she breaks out in a rash. Workup independently interpreted and significant for no acute hematologic workups. On independent interpretation of imaging, no acute intracranial hemorrhage. No vascular normality of the head or neck. See radiology read for full review of final results. On reevaluation, patient states that she still feeling heavy in her left upper and left lower extremity, still having sensation deficits. Given patient presentation, workup, history, this most likely represents TIA versus CVA versus other neurogenic abnormality such as demyelinating syndrome, etc. Because patient high risk for clinical decompensation, deemed appropriate for inpatient admission. Results were relayed to patient who voiced understanding and patient was agreeable to inpatient admission and management. Patient was admitted to the hospital for further definitive management. [employer] disclaimer Much of this encounter note is an electronic safety professional spoken language to printed text. Electronic safety professional of the spoken language may permit errors. Although I have reviewed the note, some errors may still exist. Critical Care Critical Care Time Critical Care Time: Yes (neuro) Attestation: On 02/13/24, the high probability of a clinically significant, sudden or life threatening deterioration of the following system(s) required my full and direct attention, intervention and personal management. The time I documented below is in addition to time spent performing reported procedures but includes the following listed in this critical care notation. Total Time Total Critical Care Time: 45
[2024-02-13 20:02] LABS: Alanine Aminotransferase 18 U/L (12-78); Aspartate Amino Transferase 27 U/L (14-36); Blood Urea Nitrogen 14 mg/dl (7-17); Carbon Dioxide 25 mmol/L (22.0-30.0); Creatinine Clearance Estimated 101 mL/min (50-200); Estimated Glomerular Filt Rate 67 ml/min (>60); GFR (African American) 81 ML/MIN (>60)
[2024-02-13] MEDS: 0.9 % SODIUM CHLORIDE 50 ML VIAL IV (20:02)
[2024-02-13 20:03] LABS: Albumin/Globulin Ratio 1.7 (1.1-1.8); Alkaline Phosphatase 55 U/L (38-126); Bilirubin,Total 0.3 mg/dl (0.2-1.3); Calcium 9.7 mg/dl (8.4-10.2); Chol/HDL Ratio 4.1 (1-3.5); Cholesterol 190 mg/dl (140-200); Globulin 2.7 g/dL (1.3-3.2); Glucose 104 mg/dl (74-100); HDL Cholesterol 46 mg/dl (40-60); Total Protein,Serum 7.2 g/dl (6.3-8.2); Triglycerides 117 mg/dl (30-150); VLDL Cholesterol 23 mg/dL (0-40)
[2024-02-13] MEDS: SODIUM CHLORIDE 0.9% 10ML SYR (RAD ONLY) 10 ML IV (20:03)
[2024-02-13] MEDS: IOPAMIDOL-370 (76%);100ML BOTTLE 80 ML IV (20:03)
[2024-02-13 20:05] LABS: Activated Partial Thrombo Time 25.2 seconds (22.8-30.6); Ethyl Alcohol < 10 mg/dl (0-10); INR 0.86 (0.9-1.1); Prothrombin Time 9.8 seconds (10.1-12.5)
[2024-02-13 20:14] LABS: Direct LDL Cholesterol 113.49 mg/dL (100-129)
[2024-02-13 20:19] LABS: Troponin I < 0.01 ng/ml (0.00-0.034)
--- NOTE | 2024-02-13 20:28 | PC.NURSE ---
Report given to Katarzyna GALE Pt back from CT scan No change in symptoms
[2024-02-13 20:59] LABS: HIV Combo NEGATIVE (Negative)
[2024-02-13 21:24] LABS: Appearance,Urine CLEAR (Clear); Bilirubin,Urine Negative (Negative); Blood, Urine Negative (Negative); Color,Urine YELLOW (Yellow); Glucose,Urine (UA) Negative (Negative); Ketones,Urine Negative (Negative); Leukocyte Esterase,Urine Negative (Negative); Microscopic, Urine URINE MICROSCOPIC (MICROSCOPIC); Nitrate,Urine Negative (Negative); Protein,Urine Negative (Negative); Specific Gravity, Urine <= 1.005 (1.005-1.030); Urobilinogen,Urine 0.2 EU/dl (0.2)
[2024-02-13 21:37] LABS: Squamous Epithelial Cell,Urine Occasional #/hpf (0-5)
[2024-02-13] MEDS: PROCHLORPERAZINE 10MG/2ML VIAL 10 MG IV (21:48)
[2024-02-13] MEDS: KETOROLAC 30MG/ML VIAL 15 MG IV (21:48)
[2024-02-13] MEDS: LACTATED RINGERS 1000ML 1,000 ML 999 ML IV (21:49)
[2024-02-13 21:50] LABS: Hemoglobin A1C 4.9 % (4.0-6.0)
[2024-02-13 23:07] VITALS: BP 121/70; PULSE 88; RESP 20; TEMP 36.9; O2SAT 98
[2024-02-13 23:10] VITALS: BP 121/70; PULSE 83; RESP 15; TEMP 36.7; O2SAT 98; BMI 28.3
--- NOTE | 2024-02-14 00:04 | P.HP_ITS ---
History of Present Illness *Admission Date: 02/13/24 *Reason for visit:: Numbness weakness of left arm and leg feeling slightly drunk *History of present illness: This patient states that she ended up with a left foot kind going down than the left leg kind of down to the left side then eventually into the left arm feeling a weakness or a heaviness in her left arm. .Denies any kind of chest pain or shortness of breath. She told her son about this and he felt it could be stroke related so have brought her to the emergency room./ History includes that the patient was given a big bear hug by her brother about 3 days ago heard a snap in her neck but did not think anything of it at that time as the arm and leg were fine.. She is since noted she has some left-sided neck pain and some pain down the left lower back into the sciatic area. She denies any nausea or vomiting but states that she mind feels little foggy kind of like she is drunk. Patient came to the emergency room to be evaluated, EKG shows some ST depression in several of the V leads, T wave in normal elevation. Patient notes a recent history in April of having a full hysterectomy, stated she still has her ovarie also noting at the end of December injuring her left foot which swelled and wore a walking boot but this has resolved. There was no fracture . Spoken with the ER physician, going over CT scan of head or neck and do not find anything that is acutely abnormal. But with her symptoms have slightly progressed and her physical examination do feel would be prudent to evaluate her overnight and potentially MRI of the brain in the morning., Differential diagnosis could indicate neck strain from the exam due to trigger point pain in the left side of the neck and the upper left scapula also noting pain to around L4-L5 deviating with palpation to the sciatic area. Patient is alert and oriented, but was a little slow and some response but found she was given IV Benadryl., This is due to a history of after receiving certain medical test of having a rash the next morning., She denies that she ever had any tongue swelling or facial swelling or shortness of breath to any of these allergies that she has.. Will continue serial troponins and recheck twelve-lead in the morning to see if this abnormality remains as I have nothing in her past medical history to refer to. [facility] Disclaimer: The information contained in this section may have been updated after the patient was seen, as this information can be updated by other users. Medical History (Updated 02/14/24 @ 15:18 by Hemanth Del Rosario MD) Arm numbness left Herpes infection No significant past medical history Surgical History H/O: hysterectomy History of tonsillectomy Family History Other Breast cancer Ovarian cancer Social History Smoking Status: Never smoker alcohol intake: never current occupational status: employed Travel in the last 8 weeks: None household members: family housing: house Other Medical History Have you received the Flu Vaccine for this season: No Have you received the Pneumonia Vaccine: No Review of Systems Review of Systems Review of systems:: pertinent systems reviewed and negative unless documented below Constitutional Constitutional: Reports as per HPI and Reports other (Feeling like she is sort of slow with brain fog) Eyes Eyes: Reports as per HPI ENT Ears, Nose, Mouth, and Throat: Reports as per HPI *Cardiovascular Cardiovascular: Reports as per HPI Comments: Denies chest pain *Respiratory Respiratory: Reports as per HPI Comments: Denies any shortness of breath *Gastrointestinal Gastrointestinal: Reports as per HPI *Genitourinary Genitourinary: Reports as per HPI *Musculoskeletal Musculoskeletal: Reports as per HPI Integumentary/Breasts Skin/Breast: Reports as per HPI *Neurologic Neurologic: Reports as per HPI Psychiatric Psychiatric: Reports as per HPI Endocrine Endocrine: Reports as per HPI Hematologic/Lymphatic Hematologic/Lymphatic: Reports as per HPI Allergic/Immunologic Allergic/Immunologic: Reports as per HPI Meds Home Medications and Allergies Home Medications ?Medication ?Instructions ?Recorded ?Confirmed ?Type No Known Home Medications 02/14/24 02/14/24 History New Prescriptions to Start Prescriptions: Allergies Allergy/AdvReac Type Severity Reaction Status Date / Time Penicillins (PENICILLINS) Allergy Unknown Verified 02/22/21 16:18 Sulfa (Sulfonamide Allergy Unknown Verified 02/22/21 16:18 Antibiotics) (SULFA (SULFONAMIDE ANTIBIOTICS)) acetaminophen (From [place]) Allergy Verified 02/22/21 16:16 adhesive tape Allergy Verified 02/22/21 16:18 ciprofloxacin Allergy Verified 02/22/21 16:16 clindamycin Allergy Verified 02/22/21 16:16 doxycycline Allergy Verified 02/22/21 16:16 hydrocodone (From [place]) Allergy Verified 02/22/21 16:16 IV CONTRAS Allergy Uncoded 02/22/21 16:18 Exam Data for Last 24 hours Vital signs and Labs for Last 24 Hours: Temp Pulse Resp BP Pulse Ox O2 Del Method 98.4 F 88 20 121/70 97 Room Air 02/13/24 23:07 02/13/24 23:07 02/13/24 23:07 02/13/24 23:07 02/13/24 19:45 02/13/24 23:07 Laboratory Results - last 24 hr 02/13/24 19:47: WBC 9.9, RBC 4.72, Hgb 14.2, Hct 40.7, MCV 86.2, MCH 30.1, MCHC 34.9, RDW 12.2, Plt Count 310, MPV 9.6, Neut % (Auto) 53.7, Lymph % (Auto) 34.1, Mercer % (Auto) 9.2, Eos % (Auto) 2.0, Baso % (Auto) 0.7, Neut # (Auto) 5.3, Lymph # (Auto) 3.4, Mercer # (Auto) 0.9, Eos # (Auto) 0.2, Baso # (Auto) 0.1, PT 9.8 L, INR 0.86 L, APTT 25.2, Sodium 135 L, Potassium 4.0, Chloride 105, Carbon Dioxide 25, Anion Gap 9.0, BUN 14, Creatinine 0.90, Estimated Creat Clear 101, Estimated GFR 67, Est GFR ( Amer) 81, Glucose 104 H, Hemoglobin A1c 4.9, Calcium 9.7, Total Bilirubin 0.3, AST 27, ALT 18, Alkaline Phosphatase 55, Troponin I < 0.01, Total Protein 7.2, Albumin 4.5, Globulin 2.7, Albumin/Globulin Ratio 1.7, Triglycerides 117, Cholesterol 190, LDL Cholesterol Direct 113.49, VLDL Cholesterol 23, HDL Cholesterol 46, Cholesterol/HDL Ratio 4.1 H, Plasma/Serum Alcohol < 10, HIV Ag/Ab Combo Qual Negative 02/13/24 20:50: Urine Color Yellow, Urine Appearance Clear, Urine pH 6.0, Ur Specific Jackson <= 1.005, Urine Protein Negative, Urine Glucose (UA) Negative, Urine Ketones Negative, Urine Blood Negative, Urine Nitrate Negative, Urine Bilirubin Negative, Urine Urobilinogen 0.2, Ur Leukocyte Esterase Negative, Urine RBC None, Urine WBC None, Ur Squamous Epith Cells Occasional, Urine Bacteria None I & O for Last 24 hours: Intake & Output 02/11/24 02/12/24 02/13/24 02/14/24 05:59 05:59 05:59 05:59 Weight 185 lb Radiology Reports for the Last 24 Hours: No acute abnormal findings in CT scan of head or neck. Constitutional Constitutional: mild distress and obese *Routine HEENT Exam Head: Present normocephalic and atraumatic Eye: Present EOMI, PERRL and normal accommodation ENT: Present mucous membranes moist *Routine Neck Exam Neck: Present supple, full ROM and tenderness (Left side of neck trigger point area of significant pain to palpation normal range of motion) Routine Chest/Breast/Axilla Exam Comments: During exam found no signs of chest wall pain or injury *Routine Respiratory Exam Respiratory: Present CTA bilaterally, normal respiratory effort, able to speak in complete sentences and symmetric chest movement Comments: Respiratory exam normal all hearn *Routine Cardiovascular Exam Cardiovascular: Present RRR, Normal S1 and Normal S2 Comments: No edema found in lower extremities *Routine Abdominal Exam Abdominal: Present soft and normoactive bowel sounds *Routine Rectal Exam Rectal:: deferred *Routine Genitalia Exam Genitalia:: deferred *Routine Extremities Exam Extremities: Present full ROM and pulses intact Comments: Examination of both the arms and the legs found really no deficits good range of motion in all joints. Capillary refill, normal turgor Routine Back/Spine/Pelvis Exam Back/Spine: Present full ROM and vertebral tenderness (L4-L5 left lateral some tenderness upon palpation in the sciatic area) *Routine Skin Exam Skin: Present intact, dry and warm Comments: No signs of rash *Routine Neurological Exam Neurological: Present alert, oriented X3, CN II-XII intact, normal tone, vision grossly intact, hearing grossly intact and normal speech Comments: Neurologic exam able to lift both legs independently off the bed, states that she can feel sensation equally at both ankles., Equal strengths for pronation supination of the ankles and toes Arms examined the hands no signs of swelling normal nutrition normal muscular development normal sensation equal strength on rn procedure. Routine Psychiatric Exam Psychiatric: Present normal thought process, cooperative, good insight and good judgment Comments: Patient was kind of slow to response and look like she was trying to clear her thoughts. Blinking a lot when I was talking to her, nurse came in the room and did explain she had recently received Benadryl and I believe she also got some Compazine.. So I did not find any psychiatric disorder per se that this low- dose may be related to the medication she has received. As her answers were clear she was a good historian she made sense and everything she was saying Additional Findings:: Noting on twelve-lead that there is some ST depression in her V leads H&P: Result Impressions 1. Abnormal feeling of heaviness and numbness to left lower leg left arm., With some brain fog. Slowly developing over today. Initial workup not able to find source but symptoms are still present 2. Neck pain/question related to big bear hug from brother, noting that there is neck pain to trigger point able to reproduce upon palpation to neck and to upper scapula to the left shoulder. Also noting some lower back pain. Question differential diagnosis of nerve injury causing the symptoms she is having 3. ST depression noted in the V leads, without signs of cardiac history or symptoms. And nothing in history to indicate being exposed to carbon monoxide Imaging and Cardiology CT scan - head: Status: image reviewed by me Additional comments: CT scan of her head and neck with contrast showed no significant arterial disease. No signs of fracture or misalignment of the bradycardia of the neck. Some degenerative disc disease noted in the upper thoracic spine Assessment and Plan *Assessment and plan (1) Numbness of left foot: Status: Acute Category: Medical Code(s): R20.0 - Anesthesia of skin (2) Left leg numbness: Status: Acute Category: Medical Code(s): R20.0 - Anesthesia of skin (3) Left arm numbness: Status: Acute Category: Medical Code(s): R20.0 - Anesthesia of skin (4) Brain fog: Status: Acute Category: Medical Code(s): R41.89 - Other symptoms and signs involving cognitive functions and awareness (5) ST segment depression: Status: Acute Category: Medical Code(s): R94.31 - Abnormal electrocardiogram [ECG] [EKG] Plan 1. After talking with the ER physician evaluating labs. Doing the exam cannot explain why the patient is having this left-sided deficits., Differential diagnosis might be related to neck strain versus some nerve injury related to the big bear hug she received from her brother. But no signs of any acute bleed or stroke at this time. Plan to place her into the floor for observation and have physical therapy evaluate her for this neck pain. And then consider MRI in the morning to rule out any CVA injury. 2, ST depression/cannot find a reason for this. Will be checking labs troponins repeat the twelve-lead., To evaluate if further workup is needed. Presently troponins are normal. Further evaluation talking to the patient it sounds like she has electric heat and also fuel oil heat that is a type of diesel fuel. She says both have been running. She says she has a carbon monoxide detector I asked her last time it was checked and she has no memory of it ever being checked. Only dogs are in the house at this point in time. I am going to order ABG for carboxyhemoglobin if positive would call the fire department have them come with gas meters to take the house to shut the heater off and to get the dogs out of the house.. I have given an update to the patient and her son as to my plans. That if for some reason there was carbon oxide in the house the heater needed to be shut down till professionally evaluated.. And that also to check the carbon monoxide detector every year before the heaters are turned on 3. Patient noted with past history of hysterectomy/also foot injury a month ago. These have seem to have healed well and do not be contributing to the present condition. The patient does not appear to be in any type of anxiety distress or secondary gain. So I feel it is prudent to keep her in the hospital at this point in time to try to figure out why she has developed these new symptoms without a clear cause addendum: Respiratory came in to draw an ABG was unable to get it on the first stick patient did not want to be stuck twice., So not able to get a carboxyhemoglobin at this point. But once again the son has been instructed to check the carbon monoxide detector at the home if they are going to continue to use fuel oil pump station operator chief make sure that the exhaust system is working correctly. Rounded on patient after nurse practitioner. Personally examined and interviewed patient. Agree with exam findings and care plan as documented.
[2024-02-14 00:07] LABS: Troponin I < 0.01 ng/ml (0.00-0.034)
[2024-02-14 02:15] LABS: Troponin I < 0.01 ng/ml (0.00-0.034)
[2024-02-14 04:00] VITALS: BP 109/67; PULSE 84; RESP 16; TEMP 36.7; O2SAT 97; BMI 28.3
--- NOTE | 2024-02-14 06:34 | ECG_ITS ---
APPROVED REPORT Exam: Resting ECG HR:69 bpm ECG Measurements Heart Rate 69 AXES SC 137 P 70 QRSd 85 QRS 63 QT 421 T 47 QTc 441 Conclusion SINUS RHYTHM MODERATE ST DEPRESSION [0.05+ mV ST DEPRESSION] ABNORMAL ECG UNCONFIRMED REPORT Electronically signed by : Oliver Fagan MD 02/14/2024 08:04:07
[2024-02-14 07:14] LABS: Albumin Level 3.9 g/dl (3.5-5.0); Chloride 107 mmol/L (98-107); Sodium 138 mmol/L (136-145)
[2024-02-14 07:16] LABS: Blood Urea Nitrogen 11 mg/dl (7-17); Carbon Dioxide 22 mmol/L (22.0-30.0); Creatinine Clearance Estimated 111 mL/min (50-200); Estimated Glomerular Filt Rate 77 ml/min (>60); GFR (African American) 93 ML/MIN (>60)
[2024-02-14 07:17] LABS: Alanine Aminotransferase 19 U/L (12-78); Albumin/Globulin Ratio 1.6 (1.1-1.8); Alkaline Phosphatase 46 U/L (38-126); Aspartate Amino Transferase 25 U/L (14-36); Bilirubin,Total 0.5 mg/dl (0.2-1.3); Calcium 9.2 mg/dl (8.4-10.2); Globulin 2.5 g/dL (1.3-3.2); Glucose 152 mg/dl (74-100); Magnesium 2.1 mg/dl (1.6-2.3); Total Protein,Serum 6.4 g/dl (6.3-8.2)
[2024-02-14 07:20] LABS: Basophils % 0.1 % (0.1-2.0); Hematocrit 38.8 % (37.0-47.0); Hemoglobin 13.5 g/dL (12.2-16.2); Lymphocytes # 0.9 K/mm3 (0.7-4.5); Lymphocytes % 10.8 % (10-50); Mean Corpuscular HGB Conc 34.8 g/dL (31.8-35.4); Mean Corpuscular Volume 86.2 fl (81-99); Monocytes # 0.2 K/mm3 (0.1-1.0); Monocytes % 1.8 % (1.7-9.3); Neutrophils # 7.3 K/mm3 (1.8-7.8); Neutrophils % 86.8 % (37.0-80.0); Platelet Count 302 K/mm3 (142-424); Red Cell Distribution Width 12.1 % (11.5-17.5); White Blood Count 8.5 K/mm3 (4.8-10.8)
[2024-02-14 07:33] LABS: MANUAL DIFFERENTIAL MANUAL DIFFERENTIAL (MANUAL DIFF)
--- NOTE | 2024-02-14 07:45 | MR_ITS ---
FINAL REPORT TECHNIQUE: Multiplanar MR, without contrast administration CLINICAL HISTORY: LEFT SIDED NUMBNESS COMPARISON: 02/14/2024 FINDINGS: Diffusion sequences show no signal abnormalities to indicate acute infarct. The brain parenchyma is homogeneous with normal signal pattern. Ventricles are normal. No edema or hemorrhage is seen. Major vessel flow-voids are intact. IMPRESSION: Unremarkable MR evaluation of the brain, without contrast Reviewed, Interpreted and Dictated by Kailey Kiser MD Transcribed by Cassie Danielson Authenticated and [facility]
[2024-02-14 08:00] VITALS: BP 117/70; PULSE 80; TEMP 36.6; O2SAT 95
--- NOTE | 2024-02-14 09:21 | HMH.PTEV ---
Physical Therapy Evaluation Rehab PT IP Evaluation Start: 02/13/24 23:17 Freq: ONCE Status: Active Protocol: Document 02/14/24 09:15 MARCELA (Rec: 02/14/24 09:20 MARCELA [id number]) Subjective/History History History Pt is a 48 y/o female who was admitted to [facility] after complaints of L UE weakness. Subjective Subjective Pt lives with her son in a 2- story home. Pt is IND with her mobility without AD use. Pt still drives. New diagnosis of cancer in past 12 No months? Rehab PT IP Eval Objective Appearance Patient Behavior Appropriate,Cooperative Patient Orientation Person,Place Difficulty following instructions none Speech Pattern Clear Ambulation Patient Able to Ambulate Yes Ambulation Observation IP General Gait Pattern Observation No Deviations/Normal Ambulation Distance (feet) 30 Ambulation Assistive Device None Ambulation Ability Independent Balance Ability to Arise Able, w/o using arms Sitting Balance Steady, safe Standing Balance Narrow stance w/o support Dynamic Sitting Balance Ability Normal Dynamic Standing Balance Ability Normal Transfers Bed Transfer Ability Independent Sit to Stand Bed Transfer Ability Independent Rehab PT IP prob,goals,plan Problems Date of Evaluation: 02/14/24 Rehab Potential Rehab Potential Innapropriate for Skilled Therapy Discharge Plan PT Discharge Plan Pt is not appropriate for skilled acute care physical therapy d/t IND mobility. Eval Complexity Eval Charge Codes 20913 - Low Complexity PHYSICIAN CERTIFICATION: I certify the specified therapy services for Yaquelin Mayer are required, authorized, and reviewed every 30 days.
[2024-02-14 10:15] LABS: Lymphocytes % 15 % (10-50); Monocytes % 1 % (2-9); Neutrophils % 84 % (42-76); Total Cells Counted 100
[2024-02-14 10:16] LABS: Platelet Estimate Normal; RBC Morphology Normal
--- NOTE | 2024-02-14 12:50 | P.DS_ITS ---
General Admission date:: 02/13/24 Discharge date: 02/14/24 HPI HPI HPI: This patient states that she ended up with a left foot kind going down than the left leg kind of down to the left side then eventually into the left arm feeling a weakness or a heaviness in her left arm. .Denies any kind of chest pain or shortness of breath. She told her son about this and he felt it could be stroke related so have brought her to the emergency room./ History includes that the patient was given a big bear hug by her brother about 3 days ago heard a snap in her neck but did not think anything of it at that time as the arm and leg were fine.. She is since noted she has some left-sided neck pain and some pain down the left lower back into the sciatic area. She denies any nausea or vomiting but states that she mind feels little foggy kind of like she is drunk. Patient came to the emergency room to be evaluated, EKG shows some ST depression in several of the V leads, T wave in normal elevation. Patient notes a recent history in April of having a full hysterectomy, stated she still has her ovarie also noting at the end of December injuring her left foot which swelled and wore a walking boot but this has resolved. There was no fracture . Spoken with the ER physician, going over CT scan of head or neck and do not find anything that is acutely abnormal. But with her symptoms have slightly progressed and her physical examination do feel would be prudent to evaluate her overnight and potentially MRI of the brain in the morning., Differential diagnosis could indicate neck strain from the exam due to trigger point pain in the left side of the neck and the upper left scapula also noting pain to around L4-L5 deviating with palpation to the sciatic area. Patient is alert and oriented, but was a little slow and some response but found she was given IV Benadryl., This is due to a history of after receiving certain medical test of having a rash the next morning., She denies that she ever had any tongue swelling or facial swelling or shortness of breath to any of these allergies that she has.. Will continue serial troponins and recheck twelve-lead in the morning to see if this abnormality remains as I have nothing in her past medical history to refer to. Hospital Course Hospital Course Hospital Course: Started a 48-year-old female who was admitted for abnormal feeling of heaviness and numbness in the left lower leg and arm. Symptoms are slowly developed over the day. Initial workup with no acute finding on CT. Admitted overnight and treated with anti-inflammatories, pain control, MRI obtained from morning. Differential includes CVA, radiculopathy, neuropsychiatric symptoms. MRI showed no acute abnormalities. At this time, symptoms most concerning for neuropathy/radiculopathy symptoms. Recommend outpatient follow-up with therapy. Stable discharge home. Problems addressed as follows: Arm and leg weakness along with heaviness. Neck pain -Slow development of symptoms. Presentation to the ER, and have multiple trigger points. Symptoms concerning enough however for CVA the patient was admitted overnight for observation. CT of the head and CTA of head and neck obtained. No significant arterial disease. No signs of fracture or misalignment of the vertebrae of the neck. Mild degenerative disease in the upper thoracic spine. MRI was obtained that showed no acute abnormalities or signs of ischemia. Symptoms showed improvement during admission. Given trigger points, symptoms consistent with cervical and lumbar radiculopathy, will discharge home with further management as an outpatient with therapy. Recommend continuing Tylenol and ibuprofen for pain and anti-inflammation. Recommend stretching. Provided with information on stretches for sciatica, cervical radiculopathy, lumbar radiculopathy. Labs otherwise normal during admission. Outpatient therapy orders given to patient at discharge Exam Data for Last 24 hours Vital signs and Labs for Last 24 Hours: Temp Pulse Resp BP Pulse Ox O2 Del Method 98 F 80 16 117/70 95 Room Air 02/14/24 08:00 02/14/24 08:00 02/14/24 04:00 02/14/24 08:00 02/14/24 08:00 02/14/24 11:00 Laboratory Results - last 24 hr 02/13/24 19:47: WBC 9.9, RBC 4.72, Hgb 14.2, Hct 40.7, MCV 86.2, MCH 30.1, MCHC 34.9, RDW 12.2, Plt Count 310, MPV 9.6, Neut % (Auto) 53.7, Lymph % (Auto) 34.1, Gillespie % (Auto) 9.2, Eos % (Auto) 2.0, Baso % (Auto) 0.7, Neut # (Auto) 5.3, Lymph # (Auto) 3.4, Gillespie # (Auto) 0.9, Eos # (Auto) 0.2, Baso # (Auto) 0.1, PT 9.8 L, INR 0.86 L, APTT 25.2, Sodium 135 L, Potassium 4.0, Chloride 105, Carbon Dioxide 25, Anion Gap 9.0, BUN 14, Creatinine 0.90, Estimated Creat Clear 101, Estimated GFR 67, Est GFR ( Amer) 81, Glucose 104 H, Hemoglobin A1c 4.9, Calcium 9.7, Total Bilirubin 0.3, AST 27, ALT 18, Alkaline Phosphatase 55, Troponin I < 0.01, Total Protein 7.2, Albumin 4.5, Globulin 2.7, Albumin/Globulin Ratio 1.7, Triglycerides 117, Cholesterol 190, LDL Cholesterol Direct 113.49, VLDL Cholesterol 23, HDL Cholesterol 46, Cholesterol/HDL Ratio 4.1 H, Plasma/Serum Alcohol < 10, HIV Ag/Ab Combo Qual Negative 02/13/24 20:50: Urine Color Yellow, Urine Appearance Clear, Urine pH 6.0, Ur Specific Marine <= 1.005, Urine Protein Negative, Urine Glucose (UA) Negative, Urine Ketones Negative, Urine Blood Negative, Urine Nitrate Negative, Urine Bilirubin Negative, Urine Urobilinogen 0.2, Ur Leukocyte Esterase Negative, Urine RBC None, Urine WBC None, Ur Squamous Epith Cells Occasional, Urine Bacteria None 02/13/24 23:25: Troponin I < 0.01 02/14/24 01:50: Troponin I < 0.01 02/14/24 06:15: WBC 8.5, RBC 4.50, Hgb 13.5, Hct 38.8, MCV 86.2, MCH 30.0, MCHC 34.8, RDW 12.1, Plt Count 302, MPV 10.0, Neut % (Auto) 86.8 H, Lymph % (Auto) 10.8, Gillespie % (Auto) 1.8, Eos % (Auto) 0.0 L, Baso % (Auto) 0.1, Neut # (Auto) 7.3, Lymph # (Auto) 0.9, Gillespie # (Auto) 0.2, Eos # (Auto) 0.0, Baso # (Auto) 0.0, Total Counted 100, Neutrophils % (Manual) 84 H, Lymphocytes % (Manual) 15, Monocytes % (Manual) 1 L, Platelet Estimate Normal, RBC Morphology Normal, Sodium 138, Potassium 4.0, Chloride 107, Carbon Dioxide 22, Anion Gap 13.0, BUN 11, Creatinine 0.80, Estimated Creat Clear 111, Estimated GFR 77, Est GFR ( Amer) 93, Glucose 152 H D, Calcium 9.2, Magnesium 2.1, Total Bilirubin 0.5, AST 25, ALT 19, Alkaline Phosphatase 46, Total Protein 6.4, Albumin 3.9 D, Globulin 2.5, Albumin/Globulin Ratio 1.6 I & O for Last 24 hours: Intake & Output 02/11/24 02/12/24 02/13/24 02/14/24 23:59 23:59 23:59 23:59 Intake Total 200 / 200 Output Total 0 / 0 Balance 200 / 200 Weight 81.964 kg 81.964 kg Constitutional Constitutional: no acute distress, average body habitus and cooperative *Routine HEENT Exam Head: Present normocephalic Eye: Present EOMI and PERRL ENT: Present mucous membranes moist *Routine Neck Exam Neck: Present supple; Absent lymphadenopathy *Routine Respiratory Exam Respiratory: Present CTA bilaterally; Absent rhonchi, wheezes or crackles *Routine Cardiovascular Exam Cardiovascular: Present RRR *Routine Abdominal Exam Abdominal: Present soft and normoactive bowel sounds; Absent tenderness *Routine Rectal Exam Patient deferred: visual exam *Routine Exam Patient deferred: external exam *Routine Extremities Exam Extremities: Absent cyanosis, clubbing or edema *Routine Skin Exam Skin: Present warm; Absent rash *Routine Neurological Exam Neurological: Present alert, oriented X3, CN II-XII intact and moving all extremities; Absent sensory deficit, motor deficit, altered mental status or hemineglect Results Data Completed and Pending Labs on day of discharge: Labs from last 24 hours 02/14/24 02/14/24 02/13/24 06:15 01:50 23:25 WBC 8.5 RBC 4.50 Hgb 13.5 Hct 38.8 MCV 86.2 MCH 30.0 MCHC 34.8 RDW 12.1 Plt Count 302 MPV 10.0 Neut % (Auto) 86.8 H Lymph % (Auto) 10.8 Gillespie % (Auto) 1.8 Eos % (Auto) 0.0 L Baso % (Auto) 0.1 Neut # (Auto) 7.3 Lymph # (Auto) 0.9 Gillespie # (Auto) 0.2 Eos # (Auto) 0.0 Baso # (Auto) 0.0 Total Counted 100 Neutrophils % (Manual) 84 H Lymphocytes % (Manual) 15 Monocytes % (Manual) 1 L Platelet Estimate Normal RBC Morphology Normal PT INR APTT Sodium 138 Potassium 4.0 Chloride 107 Carbon Dioxide 22 Anion Gap 13.0 BUN 11 Creatinine 0.80 Estimated Creat Clear 111 Estimated GFR 77 Est GFR ( Amer) 93 Glucose 152 H D Hemoglobin A1c Calcium 9.2 Magnesium 2.1 Total Bilirubin 0.5 AST 25 ALT 19 Alkaline Phosphatase 46 Troponin I < 0.01 < 0.01 Total Protein 6.4 Albumin 3.9 D Globulin 2.5 Albumin/Globulin Ratio 1.6 Triglycerides Cholesterol LDL Cholesterol Direct VLDL Cholesterol HDL Cholesterol Cholesterol/HDL Ratio Urine Color Urine Appearance Urine pH Ur Specific Marine Urine Protein Urine Glucose (UA) Urine Ketones Urine Blood Urine Nitrate Urine Bilirubin Urine Urobilinogen Ur Leukocyte Esterase Urine RBC Urine WBC Ur Squamous Epith Cells Urine Bacteria Plasma/Serum Alcohol HIV Ag/Ab Combo Qual 02/13/24 02/13/24 20:50 19:47 WBC 9.9 RBC 4.72 Hgb 14.2 Hct 40.7 MCV 86.2 MCH 30.1 MCHC 34.9 RDW 12.2 Plt Count 310 MPV 9.6 Neut % (Auto) 53.7 Lymph % (Auto) 34.1 Gillespie % (Auto) 9.2 Eos % (Auto) 2.0 Baso % (Auto) 0.7 Neut # (Auto) 5.3 Lymph # (Auto) 3.4 Gillespie # (Auto) 0.9 Eos # (Auto) 0.2 Baso # (Auto) 0.1 Total Counted Neutrophils % (Manual) Lymphocytes % (Manual) Monocytes % (Manual) Platelet Estimate RBC Morphology PT 9.8 L INR 0.86 L APTT 25.2 Sodium 135 L Potassium 4.0 Chloride 105 Carbon Dioxide 25 Anion Gap 9.0 BUN 14 Creatinine 0.90 Estimated Creat Clear 101 Estimated GFR 67 Est GFR ( Amer) 81 Glucose 104 H Hemoglobin A1c 4.9 Calcium 9.7 Magnesium Total Bilirubin 0.3 AST 27 ALT 18 Alkaline Phosphatase 55 Troponin I < 0.01 Total Protein 7.2 Albumin 4.5 Globulin 2.7 Albumin/Globulin Ratio 1.7 Triglycerides 117 Cholesterol 190 LDL Cholesterol Direct 113.49 VLDL Cholesterol 23 HDL Cholesterol 46 Cholesterol/HDL Ratio 4.1 H Urine Color Yellow Urine Appearance Clear Urine pH 6.0 Ur Specific Marine <= 1.005 Urine Protein Negative Urine Glucose (UA) Negative Urine Ketones Negative Urine Blood Negative Urine Nitrate Negative Urine Bilirubin Negative Urine Urobilinogen 0.2 Ur Leukocyte Esterase Negative Urine RBC None Urine WBC None Ur Squamous Epith Cells Occasional Urine Bacteria None Plasma/Serum Alcohol < 10 HIV Ag/Ab Combo Qual Negative DS: Diagnosis Discharge Diagnosis (1) Numbness of left foot: Status: Acute Code(s): R20.0 - Anesthesia of skin (2) Left leg numbness: Status: Acute Code(s): R20.0 - Anesthesia of skin (3) Left arm numbness: Status: Acute Code(s): R20.0 - Anesthesia of skin (4) Brain fog: Status: Acute Code(s): R41.89 - Other symptoms and signs involving cognitive functions and awareness (5) ST segment depression: Status: Acute Code(s): R94.31 - Abnormal electrocardiogram [ECG] [EKG] (6) Cervical radiculopathy: Status: Acute Code(s): M54.12 - Radiculopathy, cervical region (7) Left sided sciatica: Status: Acute Code(s): M54.32 - Sciatica, left side Meds Home Medications and Allergies Home Medications ?Medication ?Instructions ?Recorded ?Confirmed ?Type No Known Home Medications 02/14/24 02/14/24 History New Prescriptions to Start Prescriptions: Allergies Allergy/AdvReac Type Severity Reaction Status Date / Time Penicillins (PENICILLINS) Allergy Unknown Verified 02/22/21 16:18 Sulfa (Sulfonamide Allergy Unknown Verified 02/22/21 16:18 Antibiotics) (SULFA (SULFONAMIDE ANTIBIOTICS)) acetaminophen (From [place]) Allergy Verified 02/22/21 16:16 adhesive tape Allergy Verified 02/22/21 16:18 ciprofloxacin Allergy Verified 02/22/21 16:16 clindamycin Allergy Verified 02/22/21 16:16 doxycycline Allergy Verified 02/22/21 16:16 hydrocodone (From [place]) Allergy Verified 02/22/21 16:16 IV CONTRAS Allergy Uncoded 02/22/21 16:18 Discharge Plan Disposition Patient Disposition: Home, Self-Care Condition: Good Follow up Plan Follow up with: Linnea Mark APRN [Referring] - 02/22/24 3:00 pm Prescriptions/Medication Reconciliation: No Action No Known Home Medications Problem Reconciliation Problems Reviewed?: Yes Patient Discharge Instructions ACTIVITY: Continue current activity DIET: continue same diet Additional Instructions: Recommend ibuprofen or Tylenol for pain and discomfort. Ibuprofen 600 to 800 mg every 6 hours as needed. Tylenol 650 - 1,000 mg every 4-6 hours as needed Patient Instructions: Sciatica (Alternative Therapy), DI for Cervical Radiculopathy, Cervical Radiculopathy Print Language: Armenian Providers Primary Care Provider: Provider,Referral Admit Provider: Adam Fair Attending Provider: Adam Fair
[2024-02-15 05:33] LABS: HCV Ab Non Reactive (Non Reactive)
--- NOTE | 2024-02-15 11:07 | SW/DCPLANNER ---
Spoke with patient on the phone. Patient stated that she is doing well. Patient stated that she thinks she had a allergic reaction to the contrast and has been taking some benadryl. Patient stated that she has no concerns or questions at this time. Patient stated that she is aware of her upcoming appointment and that she was prescribed any new medicine. Elda Bush
== END 2024-02-14 13:21 | disposition home or self-care (01) ==
LOC: ER 20:37 → 2ND 22:00
PROVIDERS: Nurse Practitioner Family; Admitting Provider Internal Medicine Adolescent Medicine; Emergency Provider Emergency Medicine; Visit Provider Internal Medicine Adolescent Medicine
DX: R20.0 Anesthesia of skin (principal); R41.89 Other symptoms and signs involving cognitive functions and awareness; R94.31 Abnormal electrocardiogram [ECG] [EKG]; M54.32 Sciatica, left side; M54.12 Radiculopathy, cervical region; R73.09 Other abnormal glucose; E87.1 Hypo-osmolality and hyponatremia; R79.1 Abnormal coagulation profile
CPT/HCPCS: 36415; 70450; 70496; 70498; 70551; 80053; 80061; 80320; 81001; 83036; 83735; 84484; 85007; 85025; 85610; 85730; 86803; 87389; 93005; 97161; 99285; G0378; G0480; J0780; J1200; J1885; J2919; J7120; Q9967